=== PATIENT | male | born 1975 | race Caucasian/White ===

== ENCOUNTER → 2017-11-02 | Outpatient (CLI) | payer MEDICARE ==
[~2017-11-02] MED LIST: ACET1TAB15 PO; ASPI-1198 PO; CLON.2 PO; CLOZ100 PO; CYCL10 PO; DSS100 PO; ESOM20CA31 PO; FLUT1BLS IH; FOLI1 PO; METF500T6 PO; METO-558 PO; MULT1TAB70 PO; OMEG1CAP6 PO; PALI234D IM; SIMV-259 PO
== END | disposition home or self-care (01) ==
LOC: RADPV 13:18
PROVIDERS: ATTEND Internal Medicine Cardiovascular Disease
DX: I34.0 Nonrheumatic mitral (valve) insufficiency (principal); I50.1 Left ventricular failure, unspecified
CPT/HCPCS: 93306

== ENCOUNTER → 2017-12-09 | Outpatient (CLI) | payer MEDICARE, OTHER ==
[~2017-12-09] VITALS: Ht 180.3 cm; Wt 112.0 kg
[2017-12-09 14:22] VITALS: BP 115/65
== END | disposition home or self-care (01) ==
LOC: SRCNTR 13:45
PROVIDERS: ATTEND Internal Medicine Cardiovascular Disease
DX: I10 Essential (primary) hypertension (principal); E11.9 Type 2 diabetes mellitus without complications; E78.5 Hyperlipidemia, unspecified; J44.9 Chronic obstructive pulmonary disease, unspecified
CPT/HCPCS: G0463

== ENCOUNTER → 2018-02-17 | Outpatient (CLI) | payer MEDICARE, OTHER ==
[~2018-02-17] VITALS: Ht 180.3 cm; Wt 109.5 kg
[2018-02-17 14:24] VITALS: BP 118/70
== END | disposition home or self-care (01) ==
LOC: SRCNTR 13:58
PROVIDERS: ATTEND Internal Medicine Cardiovascular Disease
DX: I10 Essential (primary) hypertension (principal); I49.9 Cardiac arrhythmia, unspecified; R00.0 Tachycardia, unspecified; E78.5 Hyperlipidemia, unspecified; E11.9 Type 2 diabetes mellitus without complications; F20.9 Schizophrenia, unspecified; J44.9 Chronic obstructive pulmonary disease, unspecified
CPT/HCPCS: G0463

== ENCOUNTER → 2018-04-19 | Outpatient (CLI) | payer MEDICARE, OTHER ==
[~2018-04-19] VITALS: Ht 180.3 cm; Wt 114.0 kg
[~2018-04-19] MED LIST changes: +METF-960 PO; -METF500T6 PO
[2018-04-19 13:55] VITALS: BP 131/70
== END | disposition home or self-care (01) ==
LOC: SRCNTR 13:53
PROVIDERS: ATTEND Internal Medicine Cardiovascular Disease
DX: I49.9 Cardiac arrhythmia, unspecified (principal); J44.9 Chronic obstructive pulmonary disease, unspecified; F20.9 Schizophrenia, unspecified; E11.9 Type 2 diabetes mellitus without complications; I10 Essential (primary) hypertension; E78.5 Hyperlipidemia, unspecified; R00.0 Tachycardia, unspecified
CPT/HCPCS: G0463

== ENCOUNTER → 2018-07-05 | Outpatient (CLI) | payer MEDICARE ==
[~2018-07-05] VITALS: Ht 180.3 cm; Wt 112.5 kg
[2018-07-05 14:02] VITALS: BP 118/64
== END | disposition home or self-care (01) ==
LOC: SRCNTR 14:01
PROVIDERS: ATTEND Internal Medicine Cardiovascular Disease
DX: I10 Essential (primary) hypertension (principal); J44.9 Chronic obstructive pulmonary disease, unspecified; E11.9 Type 2 diabetes mellitus without complications; E78.5 Hyperlipidemia, unspecified; I49.9 Cardiac arrhythmia, unspecified; Z87.891 Personal history of nicotine dependence; Z88.0 Allergy status to penicillin
CPT/HCPCS: G0463

== ENCOUNTER → 2018-09-06 | Outpatient (CLI) | payer MEDICARE ==
[~2018-09-06] VITALS: Ht 180.3 cm; Wt 114.0 kg
[~2018-09-06] MED LIST changes: -ACET1TAB15 PO; +LISI10TA7 PO
[2018-09-06 14:26] VITALS: BP 105/63
== END | disposition home or self-care (01) ==
LOC: SRCNTR 14:16
PROVIDERS: ATTEND Internal Medicine Cardiovascular Disease
DX: R94.31 Abnormal electrocardiogram [ECG] [EKG] (principal); E78.5 Hyperlipidemia, unspecified; J44.9 Chronic obstructive pulmonary disease, unspecified; I10 Essential (primary) hypertension; E11.65 Type 2 diabetes mellitus with hyperglycemia; I49.9 Cardiac arrhythmia, unspecified
CPT/HCPCS: 93005; G0463

== ENCOUNTER 2018-10-06 18:46 | Emergency (ER) | payer MEDICARE ==
[~2018-10-06] VITALS: Ht 180.3 cm; Wt 117.7 kg
[2018-10-06 19:24] LABS: GLUCOSE,POINT OF CARE 145 MG/DL (70-110)
[2018-10-06 20:29] LABS: BASOPHILS % (AUTO) 0.5 % (0.0-2.0); EOSINOPHILS % (AUTO) 2.1 % (1.0-6.0); HEMATOCRIT 42.2 % (41-53); HEMOGLOBIN 14.7 g/dL (13.5-17.5); LYMPHOCYTES # (AUTO) 2.9 K/uL (1.0-4.8); LYMPHOCYTES % (AUTO) 28.1 % (22.0-44.0); MEAN CORPUSCULAR HEMOGLOBIN 27.2 pg (26.0-34.0); MEAN CORPUSCULAR HGB CONC 34.9 G/dL (31.0-37.0); MEAN CORPUSCULAR VOLUME 78 fL (80-100); MONOCYTES # (AUTO) 0.5 K/uL (0.1-1.0); MONOCYTES % (AUTO) 5.1 % (2.0-9.0); NEUTROPHILS # (AUTO) 6.5 K/uL (1.8-7.7); NEUTROPHILS % (AUTO) 64.2 % (40.0-70.0); PLATELET COUNT (AUTO) 217 K/uL (150-450); RED BLOOD CELL COUNT(AUTO) 5.43 MIL/uL (4.50-5.90); RED CELL DISTRIBUTION WIDTH 15.1 % (11.5-14.5)
[2018-10-06 20:40] LABS: ANION GAP 11 mmol/L (8-16); CALCIUM, TOTAL 10.4 mg/dL (8.8-10.5); CARBON DIOXIDE 26 mmol/L (22-29); CHLORIDE 104 mmol/L (98-107); CREATININE 1.19 mg/dL (0.60-1.30); GLOMERULAR FILTR. RATE CALC > 60 mL/min (>60); GLUCOSE,RANDOM 116 mg/dL (70-110); POTASSIUM 4.3 mmol/L (3.5-5.1); SODIUM SERUM 141 mmol/L (136-145); UREA NITROGEN, BLOOD 15 mg/dL (7-18)
[2018-10-06 20:47] LABS: ALANINE AMINOTRANSFERASE 34 U/L (12-78); ALKALINE PHOSPHATASE 69 U/L (46-116); ASPARTATE AMINOTRANSFERASE 21 U/L (15-37); BILIRUBIN,TOTAL 0.3 mg/dL (0.1-1.0)
[2018-10-06 21:13] LABS: AMPHET/METH SCREEN,URINE NEGATIVE (NEGATIVE); BARBITURATE SCREEN, URINE NEGATIVE (NEGATIVE); BENZODIAZEPINES SCREEN,URINE NEGATIVE (NEGATIVE); CANNABINOID SCREEN,URINE NEGATIVE (NEGATIVE); COCAINE SCREEN,URINE NEGATIVE (NEGATIVE); METHADONE SCREEN, URINE NEGATIVE (NEGATIVE); OPIATE SCREEN,URINE NEGATIVE (NEGATIVE)
[2018-10-06 21:21] LABS: PHENCYCLIDINE SCREEN,URINE NEGATIVE (NEGATIVE)
[2018-10-06 22:32] VITALS: BP 128/73
== END 2018-10-06 22:33 | disposition home or self-care (01) ==
LOC: EMS 18:47
DX: F20.9 Schizophrenia, unspecified (principal); F22 Delusional disorders; F31.9 Bipolar disorder, unspecified; I11.0 Hypertensive heart disease with heart failure; I50.9 Heart failure, unspecified; E78.00 Pure hypercholesterolemia, unspecified; J44.9 Chronic obstructive pulmonary disease, unspecified; F17.210 Nicotine dependence, cigarettes, uncomplicated; Z88.0 Allergy status to penicillin; Z88.8 Allergy status to other drugs, medicaments and biological substances; Z79.84 Long term (current) use of oral hypoglycemic drugs; Z79.82 Long term (current) use of aspirin; Z79.899 Other long term (current) drug therapy
CPT/HCPCS: 36415; 80053; 80307; 82962; 85025; 99284; 99406; G0480

== ENCOUNTER → 2019-07-06 | Outpatient (CLI) | payer MEDICARE ==
[~2019-07-06] VITALS: Ht 180.3 cm; Wt 109.0 kg
[~2019-07-06] MED LIST changes: +ACET1TAB15 PO; -CYCL10 PO; -FLUT1BLS IH; +FLUT1BLS3 IH; +ICOS1CAP PO; +LACT30L PO; -MULT1TAB70 PO; +NIAC500T7 PO; +OXYB5XL PO; +TRAM50TA4 PO; +VARE1TAB22 PO
[2019-07-06 14:17] VITALS: BP 118/66
== END | disposition home or self-care (01) ==
LOC: SRCNTR 14:17
PROVIDERS: ATTEND Internal Medicine Cardiovascular Disease
DX: J44.9 Chronic obstructive pulmonary disease, unspecified (principal); I10 Essential (primary) hypertension; I49.9 Cardiac arrhythmia, unspecified; E11.9 Type 2 diabetes mellitus without complications; E78.5 Hyperlipidemia, unspecified; F20.9 Schizophrenia, unspecified
CPT/HCPCS: G0463

== ENCOUNTER 2020-03-21 17:29 | Emergency (ER) | payer MEDICARE, MEDICAID ==
[~2020-03-21] VITALS: Ht 177.8 cm; Wt 104.5 kg
[~2020-03-21 17:29] MED LIST changes: +ACET-2142 PO; -ACET1TAB15 PO; -CLON.2 PO; +CLON0.2T2 PO; -CLOZ100 PO; +CLOZ100T32 PO; +FOLI-130 PO; -FOLI1 PO; -TRAM50TA4 PO
[2020-03-21 17:59] LABS: COVID AG,FIA SOURCE NASOPHARYNGEAL
[2020-03-21 19:13] VITALS: BP 108/64
== END 2020-03-21 19:15 | disposition home or self-care (01) ==
LOC: EMS 17:29
DX: R53.1 Weakness (principal); R19.7 Diarrhea, unspecified; J45.909 Unspecified asthma, uncomplicated; F31.9 Bipolar disorder, unspecified; I11.0 Hypertensive heart disease with heart failure; I50.9 Heart failure, unspecified; E78.00 Pure hypercholesterolemia, unspecified; E11.9 Type 2 diabetes mellitus without complications; F20.9 Schizophrenia, unspecified; F12.90 Cannabis use, unspecified, uncomplicated; Z20.828 Contact with and (suspected) exposure to other viral communicable diseases; Z87.891 Personal history of nicotine dependence; Z88.0 Allergy status to penicillin; Z88.8 Allergy status to other drugs, medicaments and biological substances; Z79.84 Long term (current) use of oral hypoglycemic drugs; Z79.82 Long term (current) use of aspirin
CPT/HCPCS: 87426

== ENCOUNTER 2021-11-26 15:12 | Inpatient (IN) | payer MEDICARE, MEDICAID ==
[~2021-11-26] VITALS: Ht 175.3 cm; Wt 118.5 kg
[~2021-11-26 15:12] MED LIST changes: -ACET-2142 PO; +ACET1TAB97 PO; +LACT10SO10 PO; -LACT30L PO; +LISI10TA24 PO; -LISI10TA7 PO; +METF-1211 PO; -METF-960 PO; +OXYB-34 PO; -OXYB5XL PO
[2021-11-26] MEDS ORDERED: SODIUM CHLORIDE 0.9% 1,000 ML IV ONE ×6 (15:30→20:00)
[2021-11-26] MEDS ORDERED: ACETAMINOPHEN 1000 MG/ISO-OSM 100 ML IV ONE (15:30)
[2021-11-26 15:57] LABS: BASOPHILS % (AUTO) 0.2 % (0.0-2.0); EOSINOPHILS % (AUTO) 0.1 % (1.0-6.0); HEMATOCRIT 35.7 % (41-53); HEMOGLOBIN 10.4 g/dL (13.5-17.5); LYMPHOCYTES # (AUTO) 0.8 K/uL (1.0-4.8); LYMPHOCYTES % (AUTO) 5.5 % (22.0-44.0); MEAN CORPUSCULAR HEMOGLOBIN 16.3 pg (26.0-34.0); MEAN CORPUSCULAR HGB CONC 29.1 G/dL (31.0-37.0); MEAN CORPUSCULAR VOLUME 56 fL (80-100); MONOCYTES # (AUTO) 0.8 K/uL (0.1-1.0); MONOCYTES % (AUTO) 5.6 % (2.0-9.0); NEUTROPHILS # (AUTO) 13.3 K/uL (1.8-7.7); PLATELET COUNT (AUTO) 126 K/uL (150-450); RED BLOOD CELL COUNT(AUTO) 6.35 MIL/uL (4.50-5.90); RED CELL DISTRIBUTION WIDTH 22.4 % (11.5-14.5)
[2021-11-26] MEDS ORDERED: AZITHROMYCIN 500 MG/NS 250 ML IV ONE (16:00)
[2021-11-26] MEDS ORDERED: CefTRIAXone 1 GM/DEXTROSE 50 ML IV ONE (16:00)
[2021-11-26 16:03] LABS: NEUTROPHILS % (AUTO) 88.6 % (40.0-70.0)
[2021-11-26 16:08] LABS: ANION GAP 13 mmol/L (8-16); CALCIUM, TOTAL 10.9 mg/dL (8.8-10.5); CARBON DIOXIDE 22 mmol/L (22-29); CHLORIDE 96 mmol/L (98-107); CREATININE 4.43 mg/dL (0.60-1.30); GLOMERULAR FILTR. RATE CALC 14 mL/min (>60); GLUCOSE,RANDOM 150 mg/dL (70-110); SODIUM SERUM 131 mmol/L (136-145); UREA NITROGEN, BLOOD 40 mg/dL (7-18)
[2021-11-26 16:16] LABS: LACTIC ACID 3.6 mmol/L (0.4-2.0)
[2021-11-26 16:33] LABS: ALANINE AMINOTRANSFERASE 17 U/L (12-78); ALBUMIN 3.1 g/dL (3.4-5.0); ALKALINE PHOSPHATASE 52 U/L (46-116); ASPARTATE AMINOTRANSFERASE 27 U/L (15-37); BILIRUBIN,TOTAL 0.5 mg/dL (0.1-1.0); CREATINE KINASE, TOTAL ONLY 336 U/L (39-308); TOTAL PROTEIN, SERUM 6.9 g/dL (6.4-8.2)
[2021-11-26 16:44] LABS: COVID AG,FIA SOURCE NASOPHARYNGEAL
[2021-11-26 17:15] LABS: APPEARANCE,URINE CLEAR (CLEAR); BILIRUBIN,URINE NEGATIVE (NEGATIVE); GLUCOSE, URINE (UA) 70-100 mg/dL (NEGATIVE); KETONES,URINE TRACE mg/dL (NEGATIVE); LEUKOCYTE ESTERASE ,URINE NEGATIVE (NEGATIVE); NITRATE,URINE NEGATIVE (NEGATIVE); OCCULT BLOOD,URINE NEGATIVE (NEGATIVE); PH,URINE 5.5 (5.0-8.0); PROTEIN,URINE 30-70 mg/dL (NEGATIVE); SPECIFIC GRAVITIY, URINE 1.027 (1.003-1.030); UROBILINOGEN,URINE <=1.0 mg/dL (<=1.0)
[2021-11-26 17:25] LABS: INFLUENZA TYPE A NEGATIVE FOR TYPE A (NEGATIVE); INFLUENZA TYPE B NEGATIVE FOR TYPE B (NEGATIVE)
[2021-11-26 17:39] LABS: BACTERIA,URINE None Seen /HPF (None Seen); RBC,URINE 0-2 /HPF (0-2); WBC,URINE 0-2 /HPF (0-5)
[2021-11-26] MEDS: NOREPINEPHRINE 8 MG/D5%-WATER 250 ML IV PRN (18:23)
[2021-11-26 18:27] LABS: ABG BASE EXCESS -8.5 mmol/L (-2.0-3.0); ABG CARBOXYHEMOGLOBIN 1.6 % (0.0-1.5); ABG HCO3 17.7 mmol/L (22.0-26.0); ABG METHEMOGLOBIN 0.2 % (0.0-1.5); ABG OXYGEN CONTENT 12.9 mL/dL (15.0-23.0); ABG OXYGEN SATURATION 96.9 % (95.0-98.0); ABG OXYHEMOGLOBIN 95.2 % (94.0-100.0); ABG PCO2 54 mmHg (35-45); ABG TOTAL HEMOGLOBIN 9.5 G/dL (12.0-18.0); PO2, ARTERIAL BG 108.7 mmHg (88.0-96.0); SOURCE, BLOOD GAS ARTERIAL; TEMPERATURE, FAHRENHEIT, BG 98.6 FAHREN (96.0-98.6)
[2021-11-26 18:28] LABS: ABG PH 7.183 (7.35-7.450); O2 DEVICE,BLOOD GAS CANNULA (ROOM AIR); SITE, BLOOD GAS RT RADIAL
[2021-11-26] MEDS ORDERED: ONDANSETRON HCL 4 MG/2 ML VIAL IVP PRN ×2 (18:45→20:00)
[2021-11-26] MEDS ORDERED: ALBUTEROL SULFATE 2.5 MG/0.5 ML NEB SOLUTION NEB PRN (20:00)
[2021-11-26] MEDS ORDERED: DEXTROSE 50%-WATER 25 GM/50 ML SYRINGE IVP PRN (20:00)
[2021-11-26] MEDS ORDERED: ACETAMINOPHEN 325 MG TABLET PO PRN (20:00)
[2021-11-26] MEDS ORDERED: DOPamine 400MG/D5W[STANDARD] 250 ML IV ONE (20:03)
[2021-11-26] MEDS: DOPamine 400MG/D5W[STANDARD] 250 ML IV PRN (20:10)
[2021-11-26] MEDS: ATORVASTATIN CALCIUM 40 MG TABLET PO SCH (20:24)
[2021-11-26] MEDS: ASPIRIN 325 MG TABLET PO SCH (20:25)
[2021-11-26] MEDS: FAMOTIDINE 20 MG TABLET PO SCH (21:00)
[2021-11-26] MEDS: DOCUSATE SODIUM 100 MG CAPSULE PO SCH (21:00)
[2021-11-26] MEDS ORDERED: PHENYLEPHRINE 200 MG/D5%-WATER 250 ML IV PRN (21:00)
[2021-11-26 23:19] LABS: CALCIUM, TOTAL 9.1 mg/dL (8.8-10.5); CREATININE 4.43 mg/dL (0.60-1.30); POTASSIUM 5.5 mmol/L (3.5-5.1)
[2021-11-26 23:24] LABS: MAGNESIUM 1.5 mg/dL (1.80-2.40); PHOSPHORUS 5.9 mg/dL (2.5-4.9)
[2021-11-26] MEDS: INSULIN LISPRO 100 UNITS/ML SQ PRN (23:48)
[2021-11-27] VITALS: BP 84/43
[2021-11-27] MEDS: HEPARIN SODIUM,PORCINE 5,000 UNITS/ML VIAL SQ SCH ×4 (00:06→23:35)
[2021-11-27] MEDS: NOREPINEPHRINE 8 MG/D5%-WATER 250 ML IV PRN ×3 (01:41→14:42)
[2021-11-27] MEDS ORDERED: PNEUMOCOCCAL VACCINE POLYVALENT 0.5 ML VIAL [PPSV23] IM. ONE (01:45)
[2021-11-27 01:53] LABS: ABG BASE EXCESS -10.7 mmol/L (-2.0-3.0); ABG CARBOXYHEMOGLOBIN 1.6 % (0.0-1.5); ABG METHEMOGLOBIN 0.3 % (0.0-1.5); ABG OXYGEN CONTENT 13.1 mL/dL (15.0-23.0); ABG OXYGEN SATURATION 93.2 % (95.0-98.0); ABG OXYHEMOGLOBIN 91.4 % (94.0-100.0); ABG PCO2 54 mmHg (35-45); ABG TOTAL HEMOGLOBIN 10.1 G/dL (12.0-18.0); PO2, ARTERIAL BG 76.2 mmHg (88.0-96.0); SOURCE, BLOOD GAS ARTERIAL; TEMPERATURE, FAHRENHEIT, BG 98.5 FAHREN (96.0-98.6)
[2021-11-27 01:55] LABS: ABG PH 7.147 (7.35-7.450); O2 DEVICE,BLOOD GAS CANNULA (ROOM AIR); SITE, BLOOD GAS RT BRACHIAL
[2021-11-27] MEDS: DOPamine 400MG/D5W[STANDARD] 250 ML IV PRN ×2 (02:06→07:50)
[2021-11-27] MEDS ORDERED: SODIUM BICARBONATE [ADULT] 8.4% 50 MEQ/50 ML SYRINGE IVP ONE ×2 (02:45→14:30)
[2021-11-27] MEDS ORDERED: MAGNESIUM SULFATE 1 GM in DEXTROSE 5%-WATER 50 ML IV ONE (02:45)
[2021-11-27 04:00] VITALS: BP 97/55
[2021-11-27 06:09] LABS: CALCIUM, TOTAL 9.3 mg/dL (8.8-10.5); CREATININE 3.94 mg/dL (0.60-1.30); POTASSIUM 4.9 mmol/L (3.5-5.1)
[2021-11-27 06:15] LABS: BASOPHILS % (AUTO) 0.3 % (0.0-2.0); EOSINOPHILS % (AUTO) 0.2 % (1.0-6.0); HEMATOCRIT 31.1 % (41-53); HEMOGLOBIN 9.3 g/dL (13.5-17.5); LYMPHOCYTES % (AUTO) 9.9 % (22.0-44.0); MEAN CORPUSCULAR HEMOGLOBIN 16.5 pg (26.0-34.0); MEAN CORPUSCULAR HGB CONC 29.7 G/dL (31.0-37.0); MEAN CORPUSCULAR VOLUME 56 fL (80-100); MONOCYTES # (AUTO) 0.9 K/uL (0.1-1.0); MONOCYTES % (AUTO) 9.1 % (2.0-9.0); NEUTROPHILS # (AUTO) 8.4 K/uL (1.8-7.7); NEUTROPHILS % (AUTO) 80.5 % (40.0-70.0); PLATELET COUNT (AUTO) 120 K/uL (150-450); RED CELL DISTRIBUTION WIDTH 21.7 % (11.5-14.5)
[2021-11-27] MEDS ORDERED: DOPamine 400MG/D5W[STANDARD] 250 ML IV PRN (06:45)
[2021-11-27 08:00] VITALS: BP 102/56
[2021-11-27 08:01] LABS: GLUCOSE,POINT OF CARE 181 MG/DL (70-110)
[2021-11-27 08:18] LABS: MAGNESIUM 1.9 mg/dL (1.80-2.40)
[2021-11-27] MEDS ORDERED: VASOPRESSIN 40 UNITS in DEXTROSE 5%-WATER 98 ML IV PRN (08:30)
[2021-11-27] MEDS ORDERED: SODIUM CHLORIDE 0.9% 500 ML IV ONE (08:38)
[2021-11-27] MEDS ORDERED: MIDAZOLAM HCL 2 MG/2 ML VIAL IVP ONE (08:45)
[2021-11-27] MEDS ORDERED: FentaNYL CITRATE PF 100 MCG/2 ML VIAL IVP ONE (08:45)
[2021-11-27] MEDS: DOCUSATE SODIUM 100 MG CAPSULE PO SCH ×2 (09:00→20:39)
[2021-11-27] MEDS: ASPIRIN 325 MG TABLET PO SCH (09:00)
[2021-11-27] MEDS: ATORVASTATIN CALCIUM 40 MG TABLET PO SCH (09:00)
[2021-11-27] MEDS: FAMOTIDINE 20 MG TABLET PO SCH ×2 (09:00→20:39)
[2021-11-27] MEDS: FentaNYL CIT 1000MCG/0.9% NACL 100 ML IV PRN ×3 (10:04→22:55)
[2021-11-27] MEDS: HYDROCORTISONE SOD SUCC 100 MG/2 ML VIAL IVP SCH ×4 (10:05→23:35)
[2021-11-27] MEDS: PROPOFOL 1000 MG/ISO-OSM 100 ML IV PRN ×5 (10:06→21:24)
[2021-11-27] MEDS: ETHYL ALCOHOL 62% ANTISEPTIC NASAL SANITIZER 0.6 ML AMPUL NASAL SCH ×2 (10:07→20:39)
[2021-11-27 10:49] LABS: ABG A-A DIFF O2 416.3 mmHg (10-20.0); ABG BASE EXCESS -8.9 mmol/L (-2.0-3.0); ABG CARBOXYHEMOGLOBIN 0.9 % (0.0-1.5); ABG HCO3 17.3 mmol/L (22.0-26.0); ABG METHEMOGLOBIN 0.3 % (0.0-1.5); ABG OXYGEN CONTENT 14.1 mL/dL (15.0-23.0); ABG OXYGEN SATURATION 98.6 % (95.0-98.0); ABG OXYHEMOGLOBIN 97.4 % (94.0-100.0); ABG TOTAL HEMOGLOBIN 10.1 G/dL (12.0-18.0); O2 DEVICE,BLOOD GAS VENTILATOR (ROOM AIR); PEEP,BG 5 cm H2O; SITE, BLOOD GAS ARTERIAL LINE; SOURCE, BLOOD GAS ARTERIAL; VT, ABG 500 ml
[2021-11-27 10:56] LABS: ABG PH 7.145 (7.35-7.450)
[2021-11-27 10:57] LABS: ABG PCO2 60 mmHg (35-45); PO2, ARTERIAL BG 145.3 mmHg (88.0-96.0); TEMPERATURE, FAHRENHEIT, BG 98.6 FAHREN (96.0-98.6)
[2021-11-27 12:00] VITALS: BP 112/46
[2021-11-27] MEDS ORDERED: ETOMIDATE 2 MG/ML 10 ML VIAL IVP ONE (12:00)
[2021-11-27] MEDS ORDERED: ROCURONIUM BROMIDE 10 MG/ML 5 ML VIAL IVP ONE (12:00)
[2021-11-27] MEDS ORDERED: LIDOCAINE/PF 2% 5 ML VIAL IM ONE (12:00)
[2021-11-27 14:04] LABS: ABG BASE EXCESS -10.1 mmol/L (-2.0-3.0); ABG CARBOXYHEMOGLOBIN 1.1 % (0.0-1.5); ABG HCO3 16.8 mmol/L (22.0-26.0); ABG METHEMOGLOBIN 0.3 % (0.0-1.5); ABG OXYGEN CONTENT 14.3 mL/dL (15.0-23.0); ABG OXYHEMOGLOBIN 96.6 % (94.0-100.0); ABG PCO2 43 mmHg (35-45); ABG PH 7.229 (7.35-7.450); ABG TOTAL HEMOGLOBIN 10.4 G/dL (12.0-18.0); PO2, ARTERIAL BG 112.5 mmHg (88.0-96.0); SOURCE, BLOOD GAS ARTERIAL; TEMPERATURE, FAHRENHEIT, BG 98.6 FAHREN (96.0-98.6)
[2021-11-27 14:27] LABS: ABG A-A DIFF O2 304.5 mmHg (10-20.0); O2 DEVICE,BLOOD GAS VENTILATOR (ROOM AIR); PEEP,BG 5 cm H2O; SITE, BLOOD GAS ARTERIAL LINE; VT, ABG 500 ml
[2021-11-27] MEDS: CefTRIAXone 1 GM/DEXTROSE 50 ML IV SCH (15:42)
[2021-11-27] MEDS: AZITHROMYCIN 500 MG/NS 250 ML IV SCH (15:43)
[2021-11-27 16:00] VITALS: BP 149/60
[2021-11-27] MEDS: SODIUM CHLORIDE 0.9% 1,000 ML IV SCH ×2 (16:40)
[2021-11-27] MEDS: INSULIN LISPRO 100 UNITS/ML SQ PRN (18:20)
[2021-11-27 19:56] LABS: GLUCOSE,POINT OF CARE 276 MG/DL (70-110)
[2021-11-27 20:00] VITALS: BP 124/46
[2021-11-28] VITALS: BP 112/69
[2021-11-28] MEDS: INSULIN LISPRO 100 UNITS/ML SQ PRN ×4 (00:33→23:25)
[2021-11-28] MEDS: PROPOFOL 1000 MG/ISO-OSM 100 ML IV PRN ×7 (00:48→21:29)
[2021-11-28 03:32] LABS: GLUCOSE,POINT OF CARE 241 MG/DL (70-110)
[2021-11-28 04:00] VITALS: BP 105/65
[2021-11-28 05:41] LABS: ALBUMIN 2.2 g/dL (3.4-5.0); BILIRUBIN,TOTAL 0.3 mg/dL (0.1-1.0); CALCIUM, TOTAL 9.8 mg/dL (8.8-10.5); CREATININE 1.39 mg/dL (0.60-1.30); MAGNESIUM 1.7 mg/dL (1.80-2.40); POTASSIUM 4.6 mmol/L (3.5-5.1); TOTAL PROTEIN, SERUM 5.6 g/dL (6.4-8.2)
[2021-11-28 05:46] LABS: HEMATOCRIT 30.1 % (41-53); MEAN CORPUSCULAR HEMOGLOBIN 16.6 pg (26.0-34.0); MEAN CORPUSCULAR HGB CONC 30.1 G/dL (31.0-37.0); MEAN CORPUSCULAR VOLUME 55 fL (80-100); RED BLOOD CELL COUNT(AUTO) 5.46 MIL/uL (4.50-5.90); RED CELL DISTRIBUTION WIDTH 21.6 % (11.5-14.5)
[2021-11-28] MEDS: HYDROCORTISONE SOD SUCC 100 MG/2 ML VIAL IVP SCH ×4 (06:10→23:23)
[2021-11-28] MEDS ORDERED: BARIUM SULFATE 0.1% SUSPENSION 450 ML BOTTLE ONE (06:18)
[2021-11-28] MEDS: FentaNYL CIT 1000MCG/0.9% NACL 100 ML IV PRN ×2 (07:43→17:37)
[2021-11-28 08:00] VITALS: BP 125/53
[2021-11-28 08:17] LABS: PLATELET COUNT (AUTO) 130 K/uL (150-450)
[2021-11-28 08:29] LABS: BAND NEUTROPHILS % (MANUAL) 2 % (0-5); EOSINOPHILS % (MANUAL) 1 % (1-6); LYMPHOCYTES % (MANUAL) 6 % (22-44); MONOCYTES % (MANUAL) 3 % (2-9); SEGMENTED NEUTROPHILS % 88 % (40-70)
[2021-11-28 08:33] LABS: PLATELET MORPHOLOGY COMMENT GIANT PLTS
[2021-11-28] MEDS: ETHYL ALCOHOL 62% ANTISEPTIC NASAL SANITIZER 0.6 ML AMPUL NASAL SCH ×2 (09:08→21:38)
[2021-11-28] MEDS: HEPARIN SODIUM,PORCINE 5,000 UNITS/ML VIAL SQ SCH ×3 (09:08→23:24)
[2021-11-28] MEDS: ASPIRIN 325 MG TABLET PO SCH (09:09)
[2021-11-28] MEDS: SODIUM CHLORIDE 0.9% 1,000 ML IV SCH (09:09)
[2021-11-28] MEDS: DOCUSATE SODIUM 100 MG CAPSULE PO SCH ×2 (09:09→21:21)
[2021-11-28] MEDS: FAMOTIDINE 20 MG TABLET PO SCH ×2 (09:09→21:21)
[2021-11-28] MEDS: ATORVASTATIN CALCIUM 40 MG TABLET PO SCH (09:09)
[2021-11-28] MEDS ORDERED: MAGNESIUM SULFATE 3 GM in DEXTROSE 5%-WATER 100 ML IV ONE (09:30)
[2021-11-28 12:00] VITALS: BP 140/63
[2021-11-28 15:31] LABS: GLUCOSE,POINT OF CARE 204 MG/DL (70-110)
[2021-11-28 16:00] VITALS: BP 152/44
[2021-11-28] MEDS: AZITHROMYCIN 500 MG/NS 250 ML IV SCH (16:17)
[2021-11-28] MEDS: CefTRIAXone 1 GM/DEXTROSE 50 ML IV SCH (16:17)
[2021-11-28 19:42] LABS: GLUCOSE,POINT OF CARE 219 MG/DL (70-110)
[2021-11-28 20:00] VITALS: BP 134/65
[2021-11-28 23:36] LABS: GLUCOSE,POINT OF CARE 195 MG/DL (70-110)
[2021-11-29] VITALS: BP 124/61
[2021-11-29] MEDS: PROPOFOL 1000 MG/ISO-OSM 100 ML IV PRN ×6 (00:31→18:42)
[2021-11-29] MEDS: FentaNYL CIT 1000MCG/0.9% NACL 100 ML IV PRN ×2 (01:08→10:11)
[2021-11-29] MEDS: SODIUM CHLORIDE 0.9% 1,000 ML IV SCH (03:45)
[2021-11-29 04:00] VITALS: BP 130/67
[2021-11-29 04:25] LABS: BASOPHILS % (AUTO) 0.2 % (0.0-2.0); EOSINOPHILS % (AUTO) 0.1 % (1.0-6.0); HEMATOCRIT 30.7 % (41-53); HEMOGLOBIN 9.1 g/dL (13.5-17.5); LYMPHOCYTES % (AUTO) 12.1 % (22.0-44.0); MEAN CORPUSCULAR HEMOGLOBIN 16.4 pg (26.0-34.0); MEAN CORPUSCULAR HGB CONC 29.6 G/dL (31.0-37.0); MEAN CORPUSCULAR VOLUME 55 fL (80-100); MONOCYTES # (AUTO) 0.5 K/uL (0.1-1.0); MONOCYTES % (AUTO) 6.5 % (2.0-9.0); NEUTROPHILS # (AUTO) 6.5 K/uL (1.8-7.7); NEUTROPHILS % (AUTO) 81.1 % (40.0-70.0); PLATELET COUNT (AUTO) 166 K/uL (150-450); RED BLOOD CELL COUNT(AUTO) 5.55 MIL/uL (4.50-5.90); RED CELL DISTRIBUTION WIDTH 21.5 % (11.5-14.5)
[2021-11-29 04:49] LABS: IRON, SERUM 17 mcg/dL (50-175); TOTAL IRON BINDING CAPACITY 240 mcg/dL (250-450)
[2021-11-29] MEDS: HYDROCORTISONE SOD SUCC 100 MG/2 ML VIAL IVP SCH ×3 (04:58→17:02)
[2021-11-29 05:00] LABS: ANION GAP 5 mmol/L (8-16); CALCIUM, TOTAL 10.2 mg/dL (8.8-10.5); CARBON DIOXIDE 29 mmol/L (22-29); CHLORIDE 107 mmol/L (98-107); FERRITIN 92 ng/mL (26-388); GLOMERULAR FILTR. RATE CALC > 60 mL/min (>60); GLUCOSE,RANDOM 230 mg/dL (70-110); POTASSIUM 4.8 mmol/L (3.5-5.1); SODIUM SERUM 141 mmol/L (136-145); UREA NITROGEN, BLOOD 20 mg/dL (7-18)
[2021-11-29 05:03] LABS: HEMOGLOBIN A1C 8.6 % (3.8-5.6)
[2021-11-29] MEDS: INSULIN LISPRO 100 UNITS/ML SQ PRN ×3 (05:27→17:24)
[2021-11-29 05:46] LABS: PLATELET MORPHOLOGY COMMENT LARGE PLTS PRESENT
[2021-11-29 08:00] VITALS: BP 130/69
[2021-11-29] MEDS: HEPARIN SODIUM,PORCINE 5,000 UNITS/ML VIAL SQ SCH ×2 (08:32→16:59)
[2021-11-29] MEDS: ASPIRIN 325 MG TABLET PO SCH (08:32)
[2021-11-29] MEDS: ATORVASTATIN CALCIUM 40 MG TABLET PO SCH (08:32)
[2021-11-29] MEDS: DOCUSATE SODIUM 100 MG CAPSULE PO SCH ×2 (08:32→21:26)
[2021-11-29] MEDS: FAMOTIDINE 20 MG TABLET PO SCH ×2 (08:32→21:26)
[2021-11-29] MEDS: ETHYL ALCOHOL 62% ANTISEPTIC NASAL SANITIZER 0.6 ML AMPUL NASAL SCH ×2 (08:33→21:26)
[2021-11-29 09:22] LABS: GLUCOSE,POINT OF CARE 208 MG/DL (70-110)
[2021-11-29] MEDS: DEXMEDETOMIDINE HCL 400 MCG in SODIUM CHLORIDE 0.9% 96 ML IV PRN ×2 (11:30→23:04)
[2021-11-29 12:00] VITALS: BP 144/67
[2021-11-29 16:00] VITALS: BP 109/101
[2021-11-29 16:41] LABS: GLUCOSE,POINT OF CARE 211 MG/DL (70-110)
[2021-11-29] MEDS: AZITHROMYCIN 500 MG/NS 250 ML IV SCH (17:00)
[2021-11-29] MEDS: CefTRIAXone 1 GM/DEXTROSE 50 ML IV SCH (17:00)
[2021-11-29 17:23] LABS: ABG BASE EXCESS -0.1 mmol/L (-2.0-3.0); ABG CARBOXYHEMOGLOBIN 1.2 % (0.0-1.5); ABG HCO3 24.4 mmol/L (22.0-26.0); ABG METHEMOGLOBIN 0.3 % (0.0-1.5); ABG OXYGEN CONTENT 13.2 mL/dL (15.0-23.0); ABG OXYGEN SATURATION 96.9 % (95.0-98.0); ABG OXYHEMOGLOBIN 95.4 % (94.0-100.0); ABG PCO2 43 mmHg (35-45); ABG PH 7.383 (7.35-7.450); ABG TOTAL HEMOGLOBIN 9.7 G/dL (12.0-18.0); PO2, ARTERIAL BG 92.8 mmHg (88.0-96.0); SITE, BLOOD GAS ALINE; SOURCE, BLOOD GAS ARTERIAL; TEMPERATURE, FAHRENHEIT, BG 98.5 FAHREN (96.0-98.6)
[2021-11-29 17:24] LABS: ABG A-A DIFF O2 106.9 mmHg (10-20.0); O2 DEVICE,BLOOD GAS VENTILATOR (ROOM AIR); PEEP,BG 5 cm H2O; VENT MODE, BG CPAP (ROOM AIR)
[2021-11-29 17:25] LABS: PRESSURE SUPPORT, BG 10 cm H2O; SPONTANEOUS VT, BG 477 ml
[2021-11-29 17:26] LABS: VT, ABG 500 ml
[2021-11-29 20:00] VITALS: BP 139/71
[2021-11-29 21:22] LABS: GLUCOSE,POINT OF CARE 233 MG/DL (70-110)
[2021-11-29] MEDS ORDERED: SODIUM CHLORIDE 0.9% 500 ML IV ONE (21:22)
[2021-11-30] VITALS: BP 137/71
[2021-11-30] MEDS: HEPARIN SODIUM,PORCINE 5,000 UNITS/ML VIAL SQ SCH ×3 (00:16→15:36)
[2021-11-30] MEDS: HYDROCORTISONE SOD SUCC 100 MG/2 ML VIAL IVP SCH ×4 (00:17→17:10)
[2021-11-30] MEDS: INSULIN LISPRO 100 UNITS/ML SQ PRN ×3 (00:18→11:43)
[2021-11-30] MEDS: PROPOFOL 1000 MG/ISO-OSM 100 ML IV PRN ×6 (00:30→22:52)
[2021-11-30 00:51] LABS: GLUCOSE,POINT OF CARE 249 MG/DL (70-110)
[2021-11-30 04:00] VITALS: BP 136/68
[2021-11-30] MEDS: FentaNYL CIT 1000MCG/0.9% NACL 100 ML IV PRN (05:55)
[2021-11-30 06:07] LABS: GLUCOSE,POINT OF CARE 226 MG/DL (70-110)
[2021-11-30 06:46] LABS: BASOPHILS % (AUTO) 0.2 % (0.0-2.0); EOSINOPHILS % (AUTO) 0.4 % (1.0-6.0); HEMATOCRIT 32.7 % (41-53); HEMOGLOBIN 9.4 g/dL (13.5-17.5); LYMPHOCYTES # (AUTO) 2.1 K/uL (1.0-4.8); LYMPHOCYTES % (AUTO) 20.7 % (22.0-44.0); MEAN CORPUSCULAR HEMOGLOBIN 16.2 pg (26.0-34.0); MEAN CORPUSCULAR HGB CONC 28.8 G/dL (31.0-37.0); MEAN CORPUSCULAR VOLUME 56 fL (80-100); MONOCYTES # (AUTO) 0.6 K/uL (0.1-1.0); MONOCYTES % (AUTO) 6.4 % (2.0-9.0); NEUTROPHILS # (AUTO) 7.3 K/uL (1.8-7.7); NEUTROPHILS % (AUTO) 72.3 % (40.0-70.0); PLATELET COUNT (AUTO) 219 K/uL (150-450); RED BLOOD CELL COUNT(AUTO) 5.82 MIL/uL (4.50-5.90); RED CELL DISTRIBUTION WIDTH 21.5 % (11.5-14.5)
[2021-11-30 07:14] LABS: ALANINE AMINOTRANSFERASE 11 U/L (12-78); ALBUMIN 2.3 g/dL (3.4-5.0); ALKALINE PHOSPHATASE 49 U/L (46-116); ANION GAP 6 mmol/L (8-16); ASPARTATE AMINOTRANSFERASE 11 U/L (15-37); BILIRUBIN,TOTAL 0.3 mg/dL (0.1-1.0); CALCIUM, TOTAL 10.4 mg/dL (8.8-10.5); CARBON DIOXIDE 29 mmol/L (22-29); CHLORIDE 107 mmol/L (98-107); CREATININE 0.84 mg/dL (0.60-1.30); GLOMERULAR FILTR. RATE CALC > 60 mL/min (>60); GLUCOSE,RANDOM 232 mg/dL (70-110); PHOSPHORUS 2.4 mg/dL (2.5-4.9); POTASSIUM 4.4 mmol/L (3.5-5.1); SODIUM SERUM 142 mmol/L (136-145); TOTAL PROTEIN, SERUM 5.8 g/dL (6.4-8.2); UREA NITROGEN, BLOOD 28 mg/dL (7-18)
[2021-11-30 07:20] LABS: CREATININE,URINE RANDOM 289.7 mg/dL (30.0-125.0)
[2021-11-30 08:00] VITALS: BP 154/73
[2021-11-30] MEDS: ASPIRIN 81 MG CHEWABLE TABLET PO SCH (08:06)
[2021-11-30] MEDS: ATORVASTATIN CALCIUM 40 MG TABLET PO SCH (08:06)
[2021-11-30] MEDS: ETHYL ALCOHOL 62% ANTISEPTIC NASAL SANITIZER 0.6 ML AMPUL NASAL SCH ×2 (08:06→21:08)
[2021-11-30] MEDS: DOCUSATE SODIUM 100 MG CAPSULE PO SCH ×2 (08:06→21:08)
[2021-11-30] MEDS: FAMOTIDINE 20 MG TABLET PO SCH ×2 (08:06→21:08)
[2021-11-30] MEDS ORDERED: MAGNESIUM SULFATE 3 GM in DEXTROSE 5%-WATER 100 ML IV ONE (08:45)
[2021-11-30] MEDS ORDERED: SODIUM,POTASSIUM PHOSPHATES POWDER PACKET PO ONE (08:45)
[2021-11-30] MEDS ORDERED: SODIUM CHLORIDE 0.9% 250 ML IV ONE (09:27)
[2021-11-30] MEDS ORDERED: QUEtiapine FUMARATE 25 MG TABLET PO SCH (09:30)
[2021-11-30 12:00] VITALS: BP 161/82
[2021-11-30 12:16] LABS: GLUCOSE,POINT OF CARE 233 MG/DL (70-110)
[2021-11-30] MEDS ORDERED: FUROSEMIDE 40 MG/4 ML VIAL IVP ONE (14:00)
[2021-11-30] MEDS: CefTRIAXone 1 GM/DEXTROSE 50 ML IV SCH (15:37)
[2021-11-30] MEDS ORDERED: SODIUM CHLORIDE 0.9% 500 ML IV ONE (15:46)
[2021-11-30 16:00] VITALS: BP 146/61
[2021-11-30] MEDS: AZITHROMYCIN 500 MG/NS 250 ML IV SCH (16:08)
[2021-11-30 20:00] VITALS: BP 157/67
[2021-11-30] MEDS: DIVALPROEX SODIUM 125 MG DR CAPSULE NG SCH (21:09)
[2021-11-30] MEDS: CloZAPine 25 MG TABLET NG SCH (21:09)
[2021-11-30 23:06] LABS: GLUCOSE,POINT OF CARE 241 MG/DL (70-110)
[2021-12-01] VITALS: BP 154/68
[2021-12-01] MEDS: HYDROCORTISONE SOD SUCC 100 MG/2 ML VIAL IVP SCH ×4 (00:12→17:10)
[2021-12-01] MEDS: HEPARIN SODIUM,PORCINE 5,000 UNITS/ML VIAL SQ SCH ×3 (00:13→16:13)
[2021-12-01] MEDS: INSULIN LISPRO 100 UNITS/ML SQ PRN ×4 (00:15→16:55)
[2021-12-01] MEDS: PROPOFOL 1000 MG/ISO-OSM 100 ML IV PRN ×4 (02:35→21:18)
[2021-12-01 03:21] LABS: GLUCOSE,POINT OF CARE 213 MG/DL (70-110)
[2021-12-01 04:00] VITALS: BP 151/65
[2021-12-01 06:47] LABS: ANION GAP 6 mmol/L (8-16); CALCIUM, TOTAL 10.3 mg/dL (8.8-10.5); CARBON DIOXIDE 31 mmol/L (22-29); CHLORIDE 107 mmol/L (98-107); CREATININE 0.78 mg/dL (0.60-1.30); GLOMERULAR FILTR. RATE CALC > 60 mL/min (>60); GLUCOSE,RANDOM 201 mg/dL (70-110); PHOSPHORUS 3.5 mg/dL (2.5-4.9); SODIUM SERUM 144 mmol/L (136-145); UREA NITROGEN, BLOOD 31 mg/dL (7-18)
[2021-12-01 08:00] VITALS: BP 151/69
[2021-12-01] MEDS: DOCUSATE SODIUM 100 MG CAPSULE PO SCH ×2 (08:23→21:04)
[2021-12-01] MEDS: ETHYL ALCOHOL 62% ANTISEPTIC NASAL SANITIZER 0.6 ML AMPUL NASAL SCH ×2 (08:23→21:04)
[2021-12-01] MEDS: FAMOTIDINE 20 MG TABLET PO SCH ×2 (08:24→21:05)
[2021-12-01] MEDS: ATORVASTATIN CALCIUM 40 MG TABLET PO SCH (08:24)
[2021-12-01] MEDS: CloZAPine 25 MG TABLET NG SCH ×2 (08:24→21:05)
[2021-12-01] MEDS: ASPIRIN 81 MG CHEWABLE TABLET PO SCH (08:24)
[2021-12-01] MEDS: DIVALPROEX SODIUM 125 MG DR CAPSULE NG SCH ×2 (08:25→21:04)
[2021-12-01] MEDS: FentaNYL CIT 1000MCG/0.9% NACL 100 ML IV PRN ×2 (08:29→23:36)
[2021-12-01] MEDS ORDERED: FUROSEMIDE 40 MG/4 ML VIAL IVP ONE (08:30)
[2021-12-01 08:58] LABS: BASOPHILS % (AUTO) 0.7 % (0.0-2.0); MEAN CORPUSCULAR HEMOGLOBIN 16.1 pg (26.0-34.0); MONOCYTES # (AUTO) 0.6 K/uL (0.1-1.0); NEUTROPHILS # (AUTO) 8.7 K/uL (1.8-7.7); RED CELL DISTRIBUTION WIDTH 21.3 % (11.5-14.5)
[2021-12-01] MEDS ORDERED: MAGNESIUM SULFATE 2 GM/WATER 50 ML IV ONE (09:00)
[2021-12-01 09:01] LABS: HEMATOCRIT 32.8 % (41-53); HEMOGLOBIN 9.5 g/dL (13.5-17.5); LYMPHOCYTES # (AUTO) 1.9 K/uL (1.0-4.8); LYMPHOCYTES % (AUTO) 16.5 % (22.0-44.0); MEAN CORPUSCULAR HGB CONC 28.8 G/dL (31.0-37.0); MEAN CORPUSCULAR VOLUME 56 fL (80-100); MONOCYTES % (AUTO) 5.6 % (2.0-9.0); NEUTROPHILS % (AUTO) 76.2 % (40.0-70.0); PLATELET COUNT (AUTO) 280 K/uL (150-450); RED BLOOD CELL COUNT(AUTO) 5.87 MIL/uL (4.50-5.90)
[2021-12-01] MEDS: DEXMEDETOMIDINE HCL 400 MCG in SODIUM CHLORIDE 0.9% 96 ML IV PRN (10:11)
[2021-12-01 12:00] VITALS: BP 124/74
[2021-12-01 16:00] VITALS: BP 120/75
[2021-12-01] MEDS: CefTRIAXone 1 GM/DEXTROSE 50 ML IV SCH (16:12)
[2021-12-01] MEDS: AZITHROMYCIN 500 MG/NS 250 ML IV SCH (16:12)
[2021-12-01] MEDS: AMINO ACIDS/PROTEIN HYDROLYS 30 ML TUBE NG SCH ×2 (16:13→21:00)
[2021-12-01 20:00] VITALS: BP 120/74
[2021-12-02] VITALS: BP 128/77
[2021-12-02] MEDS: HEPARIN SODIUM,PORCINE 5,000 UNITS/ML VIAL SQ SCH ×3 (00:21→15:46)
[2021-12-02] MEDS: HYDROCORTISONE SOD SUCC 100 MG/2 ML VIAL IVP SCH ×4 (00:21→17:05)
[2021-12-02] MEDS: INSULIN LISPRO 100 UNITS/ML SQ PRN ×4 (00:24→17:07)
[2021-12-02 00:41] LABS: GLUCOMETER DEV NAME(LOC) AHU.; GLUCOSE,POINT OF CARE 195 MG/DL (70-110)
[2021-12-02 00:41] LABS: GLUCOSE,POINT OF CARE 198 MG/DL (70-110)
[2021-12-02 00:41] LABS: GLUCOSE,POINT OF CARE 163 MG/DL (70-110)
[2021-12-02 00:41] LABS: GLUCOMETER DEV NAME(LOC) AHU.; GLUCOSE,POINT OF CARE 187 MG/DL (70-110)
[2021-12-02] MEDS ORDERED: SODIUM CHLORIDE 0.9% 250 ML IV ONE ×2 (00:44→15:50)
[2021-12-02] MEDS: PROPOFOL 1000 MG/ISO-OSM 100 ML IV PRN (01:58)
[2021-12-02 04:00] VITALS: BP 115/67
[2021-12-02 06:21] LABS: BASOPHILS % (AUTO) 0.2 % (0.0-2.0); EOSINOPHILS % (AUTO) 0.9 % (1.0-6.0); HEMATOCRIT 32.4 % (41-53); HEMOGLOBIN 9.5 g/dL (13.5-17.5); LYMPHOCYTES # (AUTO) 1.4 K/uL (1.0-4.8); MEAN CORPUSCULAR HEMOGLOBIN 16.5 pg (26.0-34.0); MEAN CORPUSCULAR HGB CONC 29.4 G/dL (31.0-37.0); MEAN CORPUSCULAR VOLUME 56 fL (80-100); MONOCYTES # (AUTO) 0.4 K/uL (0.1-1.0); MONOCYTES % (AUTO) 4.2 % (2.0-9.0); NEUTROPHILS # (AUTO) 8.5 K/uL (1.8-7.7); NEUTROPHILS % (AUTO) 81.7 % (40.0-70.0); PLATELET COUNT (AUTO) 307 K/uL (150-450); RED BLOOD CELL COUNT(AUTO) 5.76 MIL/uL (4.50-5.90); RED CELL DISTRIBUTION WIDTH 21.4 % (11.5-14.5)
[2021-12-02 06:32] LABS: ANION GAP 7 mmol/L (8-16); CALCIUM, TOTAL 10.4 mg/dL (8.8-10.5); CARBON DIOXIDE 32 mmol/L (22-29); CHLORIDE 106 mmol/L (98-107); CREATININE 0.79 mg/dL (0.60-1.30); GLOMERULAR FILTR. RATE CALC > 60 mL/min (>60); GLUCOSE,RANDOM 202 mg/dL (70-110); PHOSPHORUS 3.5 mg/dL (2.5-4.9); POTASSIUM 3.7 mmol/L (3.5-5.1); SODIUM SERUM 145 mmol/L (136-145); UREA NITROGEN, BLOOD 33 mg/dL (7-18)
[2021-12-02 08:00] VITALS: BP 124/76
[2021-12-02] MEDS: AMINO ACIDS/PROTEIN HYDROLYS 30 ML TUBE NG SCH ×3 (08:08→17:07)
[2021-12-02] MEDS: ETHYL ALCOHOL 62% ANTISEPTIC NASAL SANITIZER 0.6 ML AMPUL NASAL SCH ×2 (08:09→20:14)
[2021-12-02] MEDS: DIVALPROEX SODIUM 125 MG DR CAPSULE NG SCH ×2 (08:09→20:14)
[2021-12-02] MEDS: ATORVASTATIN CALCIUM 40 MG TABLET PO SCH (08:09)
[2021-12-02] MEDS: FAMOTIDINE 20 MG TABLET PO SCH ×2 (08:09→20:14)
[2021-12-02] MEDS: CloZAPine 25 MG TABLET NG SCH ×2 (08:09→20:14)
[2021-12-02] MEDS: ASPIRIN 81 MG CHEWABLE TABLET PO SCH (08:15)
[2021-12-02] MEDS ORDERED: MAGNESIUM SULFATE 2 GM/WATER 50 ML IV ONE (08:15)
[2021-12-02] MEDS ORDERED: MAGNESIUM HYDROXIDE SUSPENSION 30 ML UDCUP PO PRN (08:30)
[2021-12-02] MEDS ORDERED: FUROSEMIDE 40 MG/4 ML VIAL IVP ONE (08:30)
[2021-12-02] MEDS ORDERED: BISACODYL 10 MG RECTAL RECTAL SUPPOSITORY PR PRN (08:30)
[2021-12-02] MEDS: DEXMEDETOMIDINE HCL 400 MCG in SODIUM CHLORIDE 0.9% 96 ML IV PRN ×2 (08:43→20:45)
[2021-12-02 08:47] LABS: GLUCOMETER DEV NAME(LOC) AHU.; GLUCOSE,POINT OF CARE 213 MG/DL (70-110)
[2021-12-02] MEDS ORDERED: MAGNESIUM SULFATE 3 GM in DEXTROSE 5%-WATER 100 ML IV ONE (09:00)
[2021-12-02] MEDS: DOCUSATE SODIUM 100 MG CAPSULE PO SCH ×2 (09:00→20:14)
[2021-12-02] MEDS ORDERED: MAGNESIUM CARBONATE 1 GM/5 ML LIQUID 22 ML UDCUP NG PRN (10:15)
[2021-12-02] MEDS ORDERED: MAGNESIUM OXIDE 400 MG TABLET PO PRN (10:15)
[2021-12-02] MEDS ORDERED: MAGNESIUM SULFATE 2 GM/WATER 50 ML IV PRN (10:15)
[2021-12-02] MEDS ORDERED: MAGNESIUM SULFATE 4 GM/WATER 100 ML IV PRN (10:15)
[2021-12-02 11:33] LABS: ABG BASE EXCESS 10.3 mmol/L (-2.0-3.0); ABG CARBOXYHEMOGLOBIN 1.3 % (0.0-1.5); ABG HCO3 32.7 mmol/L (22.0-26.0); ABG METHEMOGLOBIN 0.3 % (0.0-1.5); ABG OXYGEN CONTENT 13.8 mL/dL (15.0-23.0); ABG OXYGEN SATURATION 93.9 % (95.0-98.0); ABG OXYHEMOGLOBIN 92.4 % (94.0-100.0); ABG PCO2 52 mmHg (35-45); ABG PH 7.442 (7.35-7.450); ABG TOTAL HEMOGLOBIN 10.6 G/dL (12.0-18.0); PO2, ARTERIAL BG 69.9 mmHg (88.0-96.0); SOURCE, BLOOD GAS ARTERIAL; TEMPERATURE, FAHRENHEIT, BG 98.5 FAHREN (96.0-98.6)
[2021-12-02 11:35] LABS: O2 DEVICE,BLOOD GAS VENTILATOR (ROOM AIR); SITE, BLOOD GAS RT RADIAL
[2021-12-02 11:36] LABS: VENT MODE, BG Press. Support Vent. (ROOM AIR)
[2021-12-02 11:37] LABS: PEEP,BG 5 cm H2O
[2021-12-02 11:38] LABS: PRESSURE SUPPORT, BG 5 cm H2O; SPONTANEOUS VT, BG 498 ml
[2021-12-02 12:00] VITALS: BP 128/79
[2021-12-02 13:07] LABS: GLUCOMETER DEV NAME(LOC) AHU.; GLUCOSE,POINT OF CARE 215 MG/DL (70-110)
[2021-12-02] MEDS: CefTRIAXone 1 GM/DEXTROSE 50 ML IV SCH (15:43)
[2021-12-02] MEDS: AZITHROMYCIN 500 MG/NS 250 ML IV SCH (15:43)
[2021-12-02 16:00] VITALS: BP 126/77
[2021-12-02 20:00] VITALS: BP 129/73
[2021-12-02 21:51] LABS: GLUCOMETER DEV NAME(LOC) AHU.; GLUCOSE,POINT OF CARE 206 MG/DL (70-110)
[2021-12-03] VITALS (7 sets, daily range): BP systolic 80–155; BP diastolic 48–95
[2021-12-03] MEDS: HYDROCORTISONE SOD SUCC 100 MG/2 ML VIAL IVP SCH ×4 (00:03→16:05)
[2021-12-03] MEDS: HEPARIN SODIUM,PORCINE 5,000 UNITS/ML VIAL SQ SCH ×3 (00:03→16:05)
[2021-12-03] MEDS: INSULIN LISPRO 100 UNITS/ML SQ PRN ×5 (00:04→20:38)
[2021-12-03] MEDS ORDERED: SODIUM CHLORIDE 0.9% 250 ML IV ONE (04:08)
[2021-12-03 07:06] LABS: GLUCOSE,POINT OF CARE 180 MG/DL (70-110)
[2021-12-03 07:43] LABS: BASOPHILS % (AUTO) 0.4 % (0.0-2.0); EOSINOPHILS % (AUTO) 1.1 % (1.0-6.0); HEMATOCRIT 32.5 % (41-53); LYMPHOCYTES % (AUTO) 29.7 % (22.0-44.0); MEAN CORPUSCULAR HEMOGLOBIN 17.7 pg (26.0-34.0); MEAN CORPUSCULAR HGB CONC 30.9 G/dL (31.0-37.0); MEAN CORPUSCULAR VOLUME 57 fL (80-100); MONOCYTES # (AUTO) 0.7 K/uL (0.1-1.0); MONOCYTES % (AUTO) 6.8 % (2.0-9.0); NEUTROPHILS # (AUTO) 6.3 K/uL (1.8-7.7); PLATELET COUNT (AUTO) 199 K/uL (150-450); RED BLOOD CELL COUNT(AUTO) 5.67 MIL/uL (4.50-5.90); RED CELL DISTRIBUTION WIDTH 21.2 % (11.5-14.5)
[2021-12-03] MEDS: ATORVASTATIN CALCIUM 40 MG TABLET PO SCH (08:27)
[2021-12-03] MEDS: AMINO ACIDS/PROTEIN HYDROLYS 30 ML TUBE NG SCH ×2 (08:27→12:00)
[2021-12-03] MEDS: ASPIRIN 81 MG CHEWABLE TABLET PO SCH (08:28)
[2021-12-03] MEDS: ETHYL ALCOHOL 62% ANTISEPTIC NASAL SANITIZER 0.6 ML AMPUL NASAL SCH ×2 (08:28→20:34)
[2021-12-03] MEDS: DOCUSATE SODIUM 100 MG/10 ML LIQUID UDCUP NG SCH ×3 (08:28→20:45)
[2021-12-03] MEDS: FAMOTIDINE 20 MG TABLET PO SCH ×2 (08:28→20:35)
[2021-12-03] MEDS: CloZAPine 25 MG TABLET NG SCH ×2 (08:29→20:45)
[2021-12-03] MEDS: DIVALPROEX SODIUM 125 MG DR CAPSULE NG SCH ×2 (08:29→20:35)
[2021-12-03 08:46] LABS: ANION GAP 7 mmol/L (8-16); CALCIUM, TOTAL 10.7 mg/dL (8.8-10.5); CARBON DIOXIDE 32 mmol/L (22-29); CHLORIDE 107 mmol/L (98-107); CREATININE 0.76 mg/dL (0.60-1.30); GLOMERULAR FILTR. RATE CALC > 60 mL/min (>60); GLUCOSE,RANDOM 172 mg/dL (70-110); PHOSPHORUS 3.2 mg/dL (2.5-4.9); POTASSIUM 4.2 mmol/L (3.5-5.1); SODIUM SERUM 146 mmol/L (136-145); UREA NITROGEN, BLOOD 38 mg/dL (7-18)
[2021-12-03] MEDS: CefTRIAXone 1 GM/DEXTROSE 50 ML IV SCH (16:04)
[2021-12-03] MEDS: AZITHROMYCIN 500 MG/NS 250 ML IV SCH (16:04)
[2021-12-03 17:16] LABS: GLUCOSE,POINT OF CARE 196 MG/DL (70-110)
[2021-12-03 19:30] LABS: GLUCOMETER DEV NAME(LOC) 5S.1B; GLUCOSE,POINT OF CARE 185 MG/DL (70-110)
[2021-12-04] MEDS: HYDROCORTISONE SOD SUCC 100 MG/2 ML VIAL IVP SCH ×3 (00:26→16:43)
[2021-12-04] MEDS: HEPARIN SODIUM,PORCINE 5,000 UNITS/ML VIAL SQ SCH ×3 (00:26→16:43)
[2021-12-04 01:06] LABS: GLUCOMETER DEV NAME(LOC) 5S.1B; GLUCOSE,POINT OF CARE 175 MG/DL (70-110)
[2021-12-04 01:06] LABS: GLUCOMETER DEV NAME(LOC) 5N.1C; GLUCOSE,POINT OF CARE 243 MG/DL (70-110)
[2021-12-04 01:16] VITALS: BP 147/86
[2021-12-04 03:47] VITALS: BP 153/92
[2021-12-04] MEDS: INSULIN LISPRO 100 UNITS/ML SQ PRN ×4 (06:05→21:43)
[2021-12-04 07:06] LABS: GLUCOMETER DEV NAME(LOC) 5S.1B; GLUCOSE,POINT OF CARE 204 MG/DL (70-110)
[2021-12-04 07:35] VITALS: BP 131/76
[2021-12-04] MEDS: AMINO ACIDS/PROTEIN HYDROLYS 30 ML TUBE PO SCH ×3 (08:00→18:00)
[2021-12-04] MEDS: FAMOTIDINE 20 MG TABLET PO SCH ×2 (08:42→21:43)
[2021-12-04] MEDS: ATORVASTATIN CALCIUM 40 MG TABLET PO SCH (08:42)
[2021-12-04] MEDS: DIVALPROEX SODIUM 125 MG DR CAPSULE NG SCH ×2 (08:42→21:43)
[2021-12-04] MEDS: ASPIRIN 81 MG CHEWABLE TABLET PO SCH (08:42)
[2021-12-04] MEDS: CloZAPine 25 MG TABLET NG SCH ×2 (08:42→21:43)
[2021-12-04 08:43] LABS: ANION GAP 6 mmol/L (8-16); CALCIUM, TOTAL 10.6 mg/dL (8.8-10.5); CARBON DIOXIDE 33 mmol/L (22-29); CHLORIDE 104 mmol/L (98-107); CREATININE 0.69 mg/dL (0.60-1.30); GLOMERULAR FILTR. RATE CALC > 60 mL/min (>60); GLUCOSE,RANDOM 166 mg/dL (70-110); PHOSPHORUS 2.6 mg/dL (2.5-4.9); SODIUM SERUM 143 mmol/L (136-145); UREA NITROGEN, BLOOD 26 mg/dL (7-18)
[2021-12-04] MEDS: ETHYL ALCOHOL 62% ANTISEPTIC NASAL SANITIZER 0.6 ML AMPUL NASAL SCH ×2 (08:56→21:43)
[2021-12-04] MEDS ORDERED: POTASSIUM CHLORIDE 20 MEQ ER TABLET PO ONE (09:00)
[2021-12-04] MEDS: DOCUSATE SODIUM 100 MG/10 ML LIQUID UDCUP NG SCH ×2 (09:00→21:00)
[2021-12-04] MEDS ORDERED: MAGNESIUM SULFATE 2 GM/WATER 50 ML IV ONE (09:00)
[2021-12-04] MEDS: POTASSIUM CHL 10 MEQ/WATER 50 ML IV SCH ×2 (09:45→12:04)
[2021-12-04 11:55] VITALS: BP 131/79
[2021-12-04] MEDS: CefTRIAXone 1 GM/DEXTROSE 50 ML IV SCH (15:05)
[2021-12-04 15:41] VITALS: BP 128/79
[2021-12-04] MEDS: AZITHROMYCIN 500 MG/NS 250 ML IV SCH (15:57)
[2021-12-04 18:16] LABS: ANION GAP 7 mmol/L (8-16); CALCIUM, TOTAL 10.1 mg/dL (8.8-10.5); CARBON DIOXIDE 31 mmol/L (22-29); CHLORIDE 103 mmol/L (98-107); CREATININE 0.76 mg/dL (0.60-1.30); GLOMERULAR FILTR. RATE CALC > 60 mL/min (>60); GLUCOSE,RANDOM 266 mg/dL (70-110); PHOSPHORUS 2.9 mg/dL (2.5-4.9); POTASSIUM 3.5 mmol/L (3.5-5.1); SODIUM SERUM 141 mmol/L (136-145); UREA NITROGEN, BLOOD 22 mg/dL (7-18)
[2021-12-04 19:30] VITALS: BP 142/81
[2021-12-04 21:32] LABS: GLUCOMETER DEV NAME(LOC) 5S.2B; GLUCOSE,POINT OF CARE 279 MG/DL (70-110)
[2021-12-05] VITALS (7 sets, daily range): BP systolic 122–152; BP diastolic 65–80
[2021-12-05] MEDS: HEPARIN SODIUM,PORCINE 5,000 UNITS/ML VIAL SQ SCH ×3 (00:03→17:47)
[2021-12-05] MEDS: HYDROCORTISONE SOD SUCC 100 MG/2 ML VIAL IVP SCH ×3 (00:03→21:22)
[2021-12-05 01:46] LABS: GLUCOMETER DEV NAME(LOC) 5N.1C; GLUCOSE,POINT OF CARE 265 MG/DL (70-110)
[2021-12-05] MEDS: INSULIN LISPRO 100 UNITS/ML SQ PRN ×4 (06:52→21:34)
[2021-12-05 07:11] LABS: GLUCOMETER DEV NAME(LOC) 5N.1C; GLUCOSE,POINT OF CARE 285 MG/DL (70-110)
[2021-12-05 09:19] LABS: BASOPHILS % (AUTO) 0.6 % (0.0-2.0); EOSINOPHILS % (AUTO) 1.2 % (1.0-6.0); HEMATOCRIT 33.6 % (41-53); HEMOGLOBIN 9.8 g/dL (13.5-17.5); LYMPHOCYTES # (AUTO) 2.2 K/uL (1.0-4.8); LYMPHOCYTES % (AUTO) 26.2 % (22.0-44.0); MEAN CORPUSCULAR HEMOGLOBIN 16.6 pg (26.0-34.0); MEAN CORPUSCULAR HGB CONC 29.2 G/dL (31.0-37.0); MEAN CORPUSCULAR VOLUME 57 fL (80-100); MONOCYTES # (AUTO) 0.5 K/uL (0.1-1.0); MONOCYTES % (AUTO) 5.8 % (2.0-9.0); NEUTROPHILS # (AUTO) 5.6 K/uL (1.8-7.7); NEUTROPHILS % (AUTO) 66.2 % (40.0-70.0); PLATELET COUNT (AUTO) 364 K/uL (150-450); RED BLOOD CELL COUNT(AUTO) 5.92 MIL/uL (4.50-5.90); RED CELL DISTRIBUTION WIDTH 21.7 % (11.5-14.5)
[2021-12-05 09:34] LABS: ANION GAP 2 mmol/L (8-16); CALCIUM, TOTAL 10.3 mg/dL (8.8-10.5); CARBON DIOXIDE 35 mmol/L (22-29); CHLORIDE 105 mmol/L (98-107); CREATININE 0.75 mg/dL (0.60-1.30); GLOMERULAR FILTR. RATE CALC > 60 mL/min (>60); GLUCOSE,RANDOM 263 mg/dL (70-110); SODIUM SERUM 142 mmol/L (136-145); UREA NITROGEN, BLOOD 18 mg/dL (7-18)
[2021-12-05] MEDS: DIVALPROEX SODIUM 125 MG DR CAPSULE NG SCH ×2 (09:44→21:23)
[2021-12-05] MEDS: DOCUSATE SODIUM 100 MG/10 ML LIQUID UDCUP NG SCH ×2 (09:44→21:00)
[2021-12-05] MEDS: CloZAPine 25 MG TABLET NG SCH ×2 (09:44→21:23)
[2021-12-05] MEDS: ETHYL ALCOHOL 62% ANTISEPTIC NASAL SANITIZER 0.6 ML AMPUL NASAL SCH ×2 (09:44→21:23)
[2021-12-05] MEDS: AMINO ACIDS/PROTEIN HYDROLYS 30 ML TUBE PO SCH ×3 (09:45→17:47)
[2021-12-05] MEDS: ATORVASTATIN CALCIUM 40 MG TABLET PO SCH (09:45)
[2021-12-05] MEDS: FAMOTIDINE 20 MG TABLET PO SCH ×2 (09:45→21:23)
[2021-12-05] MEDS: ASPIRIN 81 MG CHEWABLE TABLET PO SCH (09:45)
[2021-12-05] MEDS ORDERED: MAGNESIUM SULFATE 2 GM/WATER 50 ML IV ONE (10:45)
[2021-12-05] MEDS ORDERED: FUROSEMIDE 40 MG/4 ML VIAL IVP ONE (10:45)
[2021-12-05 12:17] LABS: GLUCOMETER DEV NAME(LOC) 5N.3; GLUCOSE,POINT OF CARE 257 MG/DL (70-110)
[2021-12-05 12:17] LABS: GLUCOMETER DEV NAME(LOC) 5N.3; GLUCOSE,POINT OF CARE 256 MG/DL (70-110)
[2021-12-05] MEDS ORDERED: 0.9% SODIUM CHLORIDE 5 ML NEB SOLUTION NEB ONE (19:00)
[2021-12-05] MEDS: ALBUTEROL SULFATE 2.5 MG/0.5 ML NEB SOLUTION NEB PRN (19:04)
[2021-12-05 23:11] LABS: GLUCOMETER DEV NAME(LOC) AHU.; GLUCOSE,POINT OF CARE 188 MG/DL (70-110)
[2021-12-06 00:54] VITALS: BP 116/60
[2021-12-06] MEDS: HEPARIN SODIUM,PORCINE 5,000 UNITS/ML VIAL SQ SCH ×2 (01:00→08:09)
[2021-12-06] MEDS: INSULIN LISPRO 100 UNITS/ML SQ PRN ×4 (06:20→21:12)
[2021-12-06 06:29] VITALS: BP 133/73
[2021-12-06 06:46] LABS: GLUCOMETER DEV NAME(LOC) 5N.1C; GLUCOSE,POINT OF CARE 300 MG/DL (70-110)
[2021-12-06 06:46] LABS: GLUCOMETER DEV NAME(LOC) 5N.1C; GLUCOSE,POINT OF CARE 269 MG/DL (70-110)
[2021-12-06 07:16] LABS: GLUCOMETER DEV NAME(LOC) 5S.1B; GLUCOSE,POINT OF CARE 269 MG/DL (70-110)
[2021-12-06 07:16] LABS: GLUCOMETER DEV NAME(LOC) 5S.1B; GLUCOSE,POINT OF CARE 258 MG/DL (70-110)
[2021-12-06] MEDS: DIVALPROEX SODIUM 125 MG DR CAPSULE NG SCH ×2 (08:08→20:48)
[2021-12-06] MEDS: ATORVASTATIN CALCIUM 40 MG TABLET PO SCH (08:08)
[2021-12-06 08:09] VITALS: BP 129/72
[2021-12-06] MEDS: ASPIRIN 81 MG CHEWABLE TABLET PO SCH (08:09)
[2021-12-06] MEDS: FAMOTIDINE 20 MG TABLET PO SCH ×2 (08:09→20:47)
[2021-12-06] MEDS: CloZAPine 25 MG TABLET NG SCH ×2 (08:09→20:48)
[2021-12-06] MEDS: HYDROCORTISONE SOD SUCC 100 MG/2 ML VIAL IVP SCH (08:10)
[2021-12-06 08:15] LABS: ANION GAP 4 mmol/L (8-16); CALCIUM, TOTAL 10.1 mg/dL (8.8-10.5); CARBON DIOXIDE 34 mmol/L (22-29); CHLORIDE 102 mmol/L (98-107); CREATININE 0.75 mg/dL (0.60-1.30); GLOMERULAR FILTR. RATE CALC > 60 mL/min (>60); GLUCOSE,RANDOM 310 mg/dL (70-110); PHOSPHORUS 2.6 mg/dL (2.5-4.9); SODIUM SERUM 140 mmol/L (136-145); UREA NITROGEN, BLOOD 12 mg/dL (7-18)
[2021-12-06] MEDS: DOCUSATE SODIUM 100 MG/10 ML LIQUID UDCUP NG SCH ×3 (08:57→21:00)
[2021-12-06] MEDS: AMINO ACIDS/PROTEIN HYDROLYS 30 ML TUBE PO SCH ×2 (08:57→12:02)
[2021-12-06] MEDS: ETHYL ALCOHOL 62% ANTISEPTIC NASAL SANITIZER 0.6 ML AMPUL NASAL SCH ×2 (08:57→20:48)
[2021-12-06 11:53] VITALS: BP 148/90
[2021-12-06 12:11] LABS: GLUCOMETER DEV NAME(LOC) 5N.1C; GLUCOSE,POINT OF CARE 367 MG/DL (70-110)
[2021-12-06 16:17] VITALS: BP 137/74
[2021-12-06] MEDS: MetFORMIN HCL 500 MG TABLET PO SCH (17:27)
[2021-12-06 18:41] LABS: GLUCOMETER DEV NAME(LOC) 5N.1C; GLUCOSE,POINT OF CARE 287 MG/DL (70-110)
[2021-12-06] MEDS ORDERED: 0.9% SODIUM CHLORIDE 5 ML NEB SOLUTION NEB ONE (18:43)
[2021-12-06] MEDS: ALBUTEROL SULFATE 2.5 MG/0.5 ML NEB SOLUTION NEB PRN (18:45)
[2021-12-06 20:44] VITALS: BP 147/76
[2021-12-06] MEDS: APIXABAN 5 MG TABLET PO SCH (20:48)
[2021-12-07] VITALS (7 sets, daily range): BP systolic 123–152; BP diastolic 64–84
[2021-12-07] MEDS: INSULIN LISPRO 100 UNITS/ML SQ PRN ×4 (05:59→21:22)
[2021-12-07 08:30] LABS: ANION GAP 2 mmol/L (8-16); CALCIUM, TOTAL 10.3 mg/dL (8.8-10.5); CARBON DIOXIDE 35 mmol/L (22-29); CHLORIDE 102 mmol/L (98-107); GLOMERULAR FILTR. RATE CALC > 60 mL/min (>60); GLUCOSE,RANDOM 303 mg/dL (70-110); POTASSIUM 3.9 mmol/L (3.5-5.1); SODIUM SERUM 139 mmol/L (136-145); UREA NITROGEN, BLOOD 11 mg/dL (7-18)
[2021-12-07] MEDS: DIVALPROEX SODIUM 125 MG DR CAPSULE NG SCH ×2 (09:04→21:21)
[2021-12-07] MEDS: ETHYL ALCOHOL 62% ANTISEPTIC NASAL SANITIZER 0.6 ML AMPUL NASAL SCH ×2 (09:05→21:21)
[2021-12-07] MEDS: ASPIRIN 81 MG CHEWABLE TABLET PO SCH (09:05)
[2021-12-07] MEDS: APIXABAN 5 MG TABLET PO SCH ×2 (09:05→21:21)
[2021-12-07] MEDS: FAMOTIDINE 20 MG TABLET PO SCH ×2 (09:05→21:21)
[2021-12-07] MEDS: CloZAPine 25 MG TABLET NG SCH ×2 (09:05→21:21)
[2021-12-07] MEDS: MetFORMIN HCL 500 MG TABLET PO SCH ×2 (09:06→17:54)
[2021-12-07] MEDS: DOCUSATE SODIUM 100 MG/10 ML LIQUID UDCUP NG SCH ×3 (09:06→21:21)
[2021-12-07] MEDS: ATORVASTATIN CALCIUM 40 MG TABLET PO SCH (09:08)
[2021-12-07] MEDS ORDERED: GuaiFENesin/D-METHORPHAN [SUGAR-FREE] 200-20MG/10 ML SYRUP UDCUP PO PRN (11:00)
[2021-12-07] MEDS ORDERED: ALBUTEROL SULFATE HFA 90 MCG/PUFF 8 GM INHALER IH PRN (11:00)
[2021-12-07] MEDS: MAGNESIUM CHLORIDE 64 MG DR TABLET PO SCH (13:28)
[2021-12-07 13:46] LABS: GLUCOMETER DEV NAME(LOC) 5S.1B; GLUCOSE,POINT OF CARE 302 MG/DL (70-110)
[2021-12-07 13:46] LABS: GLUCOMETER DEV NAME(LOC) 5S.1B; GLUCOSE,POINT OF CARE 274 MG/DL (70-110)
[2021-12-07 13:46] LABS: GLUCOMETER DEV NAME(LOC) 5N.1C; GLUCOSE,POINT OF CARE 291 MG/DL (70-110)
[2021-12-07] MEDS: ALBUTEROL SULFATE 2.5 MG/0.5 ML NEB SOLUTION NEB PRN (19:15)
[2021-12-07 22:21] LABS: GLUCOMETER DEV NAME(LOC) 5S.1B; GLUCOSE,POINT OF CARE 196 MG/DL (70-110)
[2021-12-08] MEDS: INSULIN LISPRO 100 UNITS/ML SQ PRN ×2 (06:29→11:42)
[2021-12-08 06:41] VITALS: BP 142/91
[2021-12-08 07:24] LABS: ANION GAP 3 mmol/L (8-16); CALCIUM, TOTAL 10.5 mg/dL (8.8-10.5); CARBON DIOXIDE 33 mmol/L (22-29); CHLORIDE 103 mmol/L (98-107); CREATININE 0.79 mg/dL (0.60-1.30); GLOMERULAR FILTR. RATE CALC > 60 mL/min (>60); GLUCOSE,RANDOM 261 mg/dL (70-110); POTASSIUM 4.5 mmol/L (3.5-5.1); SODIUM SERUM 139 mmol/L (136-145); UREA NITROGEN, BLOOD 12 mg/dL (7-18)
[2021-12-08 07:58] VITALS: BP 136/76
[2021-12-08] MEDS: MetFORMIN HCL 500 MG TABLET PO SCH (08:38)
[2021-12-08] MEDS: ETHYL ALCOHOL 62% ANTISEPTIC NASAL SANITIZER 0.6 ML AMPUL NASAL SCH (08:38)
[2021-12-08] MEDS: ASPIRIN 81 MG CHEWABLE TABLET PO SCH (08:39)
[2021-12-08] MEDS: CloZAPine 25 MG TABLET NG SCH (08:40)
[2021-12-08] MEDS: FAMOTIDINE 20 MG TABLET PO SCH (08:40)
[2021-12-08] MEDS: ATORVASTATIN CALCIUM 40 MG TABLET PO SCH (08:40)
[2021-12-08] MEDS: DOCUSATE SODIUM 100 MG/10 ML LIQUID UDCUP NG SCH (08:40)
[2021-12-08] MEDS: APIXABAN 5 MG TABLET PO SCH (08:40)
[2021-12-08] MEDS: MAGNESIUM CHLORIDE 64 MG DR TABLET PO SCH (08:41)
[2021-12-08] MEDS: DIVALPROEX SODIUM 125 MG DR CAPSULE NG SCH (09:42)
[2021-12-08] MEDS ORDERED: APIX5TAB PO (11:00)
[2021-12-08] MEDS ORDERED: CLOZ25TA4 NG (11:00)
[2021-12-08] MEDS ORDERED: ALBU8HFA IH (11:00)
[2021-12-08] MEDS ORDERED: METF-1211 PO (11:00)
[2021-12-08] MEDS ORDERED: DIVA125C20 NG (11:00)
[2021-12-08] MEDS ORDERED: ASPI81 PO (11:00)
[2021-12-08] MEDS ORDERED: ATOR40TA71 PO (11:00)
[2021-12-08] MEDS ORDERED: LEVO750T68 PO (11:03)
[2021-12-08 11:16] LABS: GLUCOMETER DEV NAME(LOC) 5S.1B; GLUCOSE,POINT OF CARE 258 MG/DL (70-110)
[2021-12-08 11:34] VITALS: BP 147/87
[2021-12-08 14:51] LABS: GLUCOMETER DEV NAME(LOC) 5S.1B; GLUCOSE,POINT OF CARE 235 MG/DL (70-110)
== END 2021-12-08 15:00 | disposition home health service (06) | DRG 870 ==
LOC: EMS 15:12 → ICU 20:00 → 5N 12-03 16:57
PROVIDERS: ADMIT Internal Medicine; ATTEND Internal Medicine
PROC: 05HY33Z Insertion of Infusion Device into Upper Vein, Percutaneous Approach (ICD-10-PCS; 2021-11-26)
PROC: B54PZZA Ultrasonography of Bilateral Upper Extremity Veins, Guidance (ICD-10-PCS; 2021-11-26)
PROC: 5A1955Z Respiratory Ventilation, Greater than 96 Consecutive Hours (ICD-10-PCS; principal; 2021-11-27)
PROC: 0BH17EZ Insertion of Endotracheal Airway into Trachea, Via Natural or Artificial Opening (ICD-10-PCS; 2021-11-27)
PROC: 5A09357 Assistance with Respiratory Ventilation, Less than 24 Consecutive Hours, Continuous Positive Airway Pressure (ICD-10-PCS; 2021-11-27)
PROC: 5A09357 Assistance with Respiratory Ventilation, Less than 24 Consecutive Hours, Continuous Positive Airway Pressure (ICD-10-PCS; 2021-12-02)
PROC: 05HY33Z Insertion of Infusion Device into Upper Vein, Percutaneous Approach (ICD-10-PCS; 2021-12-03)
PROC: 5A09357 Assistance with Respiratory Ventilation, Less than 24 Consecutive Hours, Continuous Positive Airway Pressure (ICD-10-PCS; 2021-12-04)
DX: A41.9 Sepsis, unspecified organism (principal); R65.21 Severe sepsis with septic shock; J96.01 Acute respiratory failure with hypoxia; J96.02 Acute respiratory failure with hypercapnia; J69.0 Pneumonitis due to inhalation of food and vomit; N17.0 Acute kidney failure with tubular necrosis; G92.8 Other toxic encephalopathy; E87.1 Hypo-osmolality and hyponatremia; I13.0 Hypertensive heart and chronic kidney disease with heart failure and stage 1 through stage 4 chronic kidney disease, or unspecified chronic kidney disease; E87.4 Mixed disorder of acid-base balance; E27.40 Unspecified adrenocortical insufficiency; E66.2 Morbid (severe) obesity with alveolar hypoventilation; Z99.11 Dependence on respirator [ventilator] status; I50.9 Heart failure, unspecified; D50.9 Iron deficiency anemia, unspecified; D63.8 Anemia in other chronic diseases classified elsewhere; E11.22 Type 2 diabetes mellitus with diabetic chronic kidney disease; E78.5 Hyperlipidemia, unspecified; N18.9 Chronic kidney disease, unspecified; E83.42 Hypomagnesemia; E83.39 Other disorders of phosphorus metabolism; E83.52 Hypercalcemia; E86.0 Dehydration; E87.6 Hypokalemia; F41.9 Anxiety disorder, unspecified; K40.90 Unilateral inguinal hernia, without obstruction or gangrene, not specified as recurrent; F25.0 Schizoaffective disorder, bipolar type; Z20.822 Contact with and (suspected) exposure to COVID-19; G89.29 Other chronic pain; Z79.84 Long term (current) use of oral hypoglycemic drugs; Z87.891 Personal history of nicotine dependence; Z79.01 Long term (current) use of anticoagulants; Z79.4 Long term (current) use of insulin; Z79.82 Long term (current) use of aspirin; Z79.899 Other long term (current) drug therapy; Z88.0 Allergy status to penicillin; Z88.8 Allergy status to other drugs, medicaments and biological substances
CPT/HCPCS: 36245; 36569; 36600; 51702; 71045; 71250; 72192; 74150; 76770; 76937; 80048; 80053; 81001; 81003; 82306; 82550; 82570; 82728; 82805; 82962; 83036; 83540; 83550; 83605; 83735; 83970; 84100; 84156; 84484; 85025; 87040; 87070; 87081; 87205; 87804; 92526; 92610; 93005; 93306; 94002; 94003; 94640; 94660; 97110; 97116; 97162; 97166; 97530; 97535; 99291; G0378; J0131; J0456; J0696; J1265; J1644; J1720; J1940; J2250; J2370; J2704; J3010; J3475; J3480; J3490; J7030; J7040; J7050; J7060; Q9967; 36415-L1; 36415-TC; J7613; U0003

== ENCOUNTER → 2023-11-16 | Outpatient (CLI) | payer MEDICARE, OTHER ==
[~2023-11-16] VITALS: Ht 180.3 cm; Wt 107.0 kg
[~2023-11-16] MED LIST changes: +ALBU18HF12 IH; +APIX5TAB PO; +ASPI81 PO; +ATOR40TA71 PO; +CHOL25TA4 PO; -CLON0.2T2 PO; -CLOZ100T32 PO; +CLOZ100T61 PO; +CLOZ25TA10 NG; +CLOZ25TA52 PO; +DIVA125C20 NG; +DOCU-385 PO; -DSS100 PO; +GABA-1181 PO; +LEVO750T68 PO; -LISI10TA24 PO; +LOPE-232 PO; +METO-325 PO; -METO-558 PO; +METO25XL PO; +NALT50TA33 PO; -NIAC500T7 PO; -PALI234D IM; -VARE1TAB22 PO
[2023-11-16 14:32] VITALS: BP 119/60; PULSE 98; RESP 18; TEMP 98; O2SAT 95
== END | disposition home or self-care (01) ==
LOC: SRCNTR 14:06
PROVIDERS: ATTEND Internal Medicine Cardiovascular Disease
DX: I10 Essential (primary) hypertension (principal); J44.9 Chronic obstructive pulmonary disease, unspecified; E11.9 Type 2 diabetes mellitus without complications; E78.5 Hyperlipidemia, unspecified; F20.9 Schizophrenia, unspecified; Z79.899 Other long term (current) drug therapy; Z88.8 Allergy status to other drugs, medicaments and biological substances; Z88.0 Allergy status to penicillin
CPT/HCPCS: 93005; G0463

== ENCOUNTER → 2024-02-29 | Outpatient (CLI) | payer MEDICARE, OTHER ==
[~2024-02-29] MED LIST changes: -ASPI-1198 PO; -ASPI81 PO; -ATOR40TA71 PO; -CLOZ25TA10 NG; -DIVA125C20 NG; +EMPA25TA3 PO; -ESOM20CA31 PO; -LACT10SO10 PO; -LEVO750T68 PO; -METO25XL PO; -OMEG1CAP6 PO
[2024-02-29 15:04] LABS: BASOPHILS % (AUTO) 0.5 % (0.0-2.0); EOSINOPHILS % (AUTO) 2.2 % (1.0-6.0); HEMATOCRIT 53.2 % (41-53); HEMOGLOBIN 17.1 g/dL (13.5-17.5); LYMPHOCYTES # (AUTO) 2.2 K/uL (1.0-4.8); LYMPHOCYTES % (AUTO) 20.1 % (22.0-44.0); MEAN CORPUSCULAR HGB CONC 32.1 G/dL (31.0-37.0); MEAN CORPUSCULAR VOLUME 75 fL (80-100); MONOCYTES # (AUTO) 0.7 K/uL (0.1-1.0); MONOCYTES % (AUTO) 6.6 % (2.0-9.0); NEUTROPHILS # (AUTO) 7.8 K/uL (1.8-7.7); NEUTROPHILS % (AUTO) 70.6 % (40.0-70.0); PLATELET COUNT (AUTO) 202 K/uL (150-450); RED BLOOD CELL COUNT(AUTO) 7.11 MIL/uL (4.50-5.90); RED CELL DISTRIBUTION WIDTH 22.3 % (11.5-14.5); WHITE BLOOD COUNT (AUTO) 11.1 K/uL (4.5-11.0)
[2024-02-29 15:15] LABS: HEMOGLOBIN A1C 6.5 % (3.8-5.6)
[2024-02-29 15:22] LABS: ALANINE AMINOTRANSFERASE 18 U/L (12-78); ALBUMIN 3.9 g/dL (3.4-5.0); ALKALINE PHOSPHATASE 83 U/L (46-116); ANION GAP 9 mmol/L (8-16); ASPARTATE AMINOTRANSFERASE 17 U/L (15-37); BILIRUBIN,TOTAL 0.4 mg/dL (0.1-1.0); CALCIUM, TOTAL 10.6 mg/dL (8.8-10.5); CARBON DIOXIDE 28 mmol/L (22-29); CHLORIDE 104 mmol/L (98-107); CHOL/HDL RATIO 3.6 (4.2-7.3); CHOLESTEROL 146 mg/dL (131-200); CREATININE 1.09 mg/dL (0.60-1.30); GLOMERULAR FILTR. RATE CALC > 60 mL/min (>60); GLUCOSE,RANDOM 123 mg/dL (70-110); HDL CHOLESTEROL 41 mg/dL (40-60); LDL CHOL (CALC.) 40 mg/dL (0-130); POTASSIUM 4.2 mmol/L (3.5-5.1); SODIUM SERUM 141 mmol/L (136-145); TOTAL PROTEIN, SERUM 7.5 g/dL (6.4-8.2); TRIGLYCERIDES 323 mg/dL (15-150); UREA NITROGEN, BLOOD 18 mg/dL (7-18)
[2024-02-29 15:39] LABS: RBC MORPHOLOGY COMMENT ABNORMAL RBC MORPH
[2024-02-29 15:54] LABS: PROSTATE SPECIFIC ANTIGEN 0.33 ng/mL (0.00-4.00)
== END | disposition home or self-care (01) ==
LOC: LABMN 14:40
PROVIDERS: ATTEND Internal Medicine Cardiovascular Disease
DX: I10 Essential (primary) hypertension (principal); E11.9 Type 2 diabetes mellitus without complications; E78.5 Hyperlipidemia, unspecified; Z79.899 Other long term (current) drug therapy
CPT/HCPCS: 80053; 80061; 83036; 84153; 85025

== ENCOUNTER → 2024-02-29 | Outpatient (CLI) | payer MEDICARE, OTHER ==
[~2024-02-29] VITALS: Ht 180.3 cm; Wt 107.0 kg
[2024-02-29 13:59] VITALS: BP 119/67; PULSE 98; RESP 20; TEMP 98.5; O2SAT 94
== END | disposition home or self-care (01) ==
LOC: SRCNTR 13:09
PROVIDERS: ATTEND Internal Medicine Cardiovascular Disease
DX: J44.9 Chronic obstructive pulmonary disease, unspecified (principal); E11.9 Type 2 diabetes mellitus without complications; M25.551 Pain in right hip; I10 Essential (primary) hypertension; E78.5 Hyperlipidemia, unspecified; F20.9 Schizophrenia, unspecified; Z79.01 Long term (current) use of anticoagulants; Z88.0 Allergy status to penicillin; Z88.8 Allergy status to other drugs, medicaments and biological substances; Z79.899 Other long term (current) drug therapy
CPT/HCPCS: G0463